=== PATIENT | female | born 1950 | race Caucasian/White ===

== ENCOUNTER 2023-11-21 17:59 | Emergency (ER) | payer MEDICARE ==
[~2023-11-21] VITALS: Ht 162.6 cm; Wt 71.2 kg
[2023-11-21 19:12] LABS: BASO # 0.1 10^3/uL (0.0-0.2); BASO % 0.5 % (0.0-1.0); EOS # 0.1 10^3/uL (0.0-0.5); EOS % 1.1 % (0.0-3.0); HEMATOCRIT 44.2 % (36.0-47.0); HEMOGLOBIN 14.6 g/dl (12.0-15.5); LYMPH # 1.8 10^3/uL (1.5-5.0); LYMPH % 18.3 % (24.0-44.0); MEAN CORPUSCULAR VOLUME 87.7 fl (80.0-96.0); MONO # 0.4 10^3/uL (0.0-0.8); NEUTROPHILS # 7.4 10^3/uL (1.5-8.5); NEUTROPHILS % 75.7 % (36.0-66.0); PLATELET COUNT, AUTOMATED 278 10^3/uL (150-450); RED BLOOD COUNT 5.04 10^6/uL (4.00-5.40); WHITE BLOOD COUNT 9.8 10^3/uL (4.0-10.0)
[2023-11-21 19:33] LABS: LIPASE 35 U/L (12-53)
[2023-11-21 19:35] LABS: ALBUMIN 4.3 G/DL (3.2-5.2); ALKALINE PHOSPHATASE 58 U/L (46-116); ALT/SGPT 18 U/L (7.0-40); AST/SGOT 11 U/L (<34); BILIRUBIN,DIRECT < 0.1 MG/DL (<0.4); BILIRUBIN,TOTAL 0.4 MG/DL (0.3-1.2); BLOOD UREA NITROGEN 18 MG/DL (9-23); CALCIUM LEVEL 9.1 MG/DL (8.3-10.6); CARBON DIOXIDE LEVEL 26 MMOL/L (20-31); CHLORIDE LEVEL 108 MMOL/L (98-107); CREATININE FOR GFR 0.67 MG/DL (0.55-1.30); GLOMERULAR FILTRATION RATE > 60.0 (>39); GLUCOSE, FASTING 113 MG/DL (74-106); INR 0.95; PARTIAL THROMBOPLASTIN TIME 30.8 SECONDS (24.8-34.2); POTASSIUM SERUM 3.8 MMOL/L (3.5-5.1); PROTHROMBIN TIME 12.4 SECONDS (12.5-14.5); SODIUM LEVEL 139 MMOL/L (136-145); TOTAL PROTEIN 7.2 G/DL (5.7-8.2)
[2023-11-21 19:38] LABS: FREE T4 0.96 NG/DL (0.89-1.76); THYROID STIMULATING HORMONE 2.858 uIU/ML (0.55-4.78)
[2023-11-21] MEDS ORDERED: hydrALAZINE 20MG/ML 1ML VIAL IV STA (19:38)
[2023-11-21] MEDS ORDERED: NS 1,000 ML IV SCH (19:40)
[2023-11-21 19:41] VITALS: TEMP 98.1
[2023-11-21] MEDS ORDERED: LABETALOL 100MG/20ML VIAL IV STA (19:53)
[2023-11-21] MEDS ORDERED: OXYMETAZOLINE 0.05% NASAL SPRAY (AFRIN) ONE (20:25)
[2023-11-21] MEDS ORDERED: amLODIPine 5 MG TAB PO ONE (21:05)
[2023-11-21 21:22] VITALS: BP 205/94
[2023-11-21] MEDS ORDERED: NORV5TAB PO (21:54)
[2023-11-21 21:59] VITALS: BP 190/95; O2SAT 98
== END 2023-11-21 22:26 | disposition home or self-care (01) ==
LOC: M ED 17:59
DX: R04.0 Epistaxis (principal); I16.0 Hypertensive urgency; I10 Essential (primary) hypertension; R00.0 Tachycardia, unspecified; Z79.83 Long term (current) use of bisphosphonates
CPT/HCPCS: 80048; 80076; 83690; 84439; 84443; 85025; 85610; 85730; 93005; 96361; 96374; 96375; 99284; J0360; J1920

== ENCOUNTER → 2023-11-29 | Outpatient (CLI) | payer MEDICARE ==
[~2023-11-29] MED LIST: NORV5TAB PO
== END ==
LOC: M ADAMS 14:59
PROVIDERS: ATTEND Family Medicine
DX: I10 Essential (primary) hypertension (principal)

== ENCOUNTER → 2023-12-10 | Outpatient (CLI) | payer MEDICARE | LOC: M RAD 13:11 | PROVIDERS: ATTEND Family Medicine | DX: I65.22 Occlusion and stenosis of left carotid artery (principal) ==

== ENCOUNTER → 2023-12-27 | Outpatient (REF) | payer MEDICARE ==
[2023-12-27 12:56] LABS: BLOOD UREA NITROGEN 18 MG/DL (9-23); CALCIUM LEVEL 9.4 MG/DL (8.3-10.6); CARBON DIOXIDE LEVEL 29 MMOL/L (20-31); CHLORIDE LEVEL 105 MMOL/L (98-107); CREATININE FOR GFR 0.74 MG/DL (0.55-1.30); GLOMERULAR FILTRATION RATE > 60.0 (>39); GLUCOSE, FASTING 95 MG/DL (74-106); POTASSIUM SERUM 4.7 MMOL/L (3.5-5.1); SODIUM LEVEL 138 MMOL/L (136-145)
== END ==
LOC: M SFHCADAM 10:42
PROVIDERS: ATTEND Physician Assistant
DX: I10 Essential (primary) hypertension (principal)

== ENCOUNTER → 2024-01-09 | Outpatient (CLI) | payer MEDICARE | LOC: M CARPUL 09:10 | PROVIDERS: ATTEND Family Medicine | DX: R01.1 Cardiac murmur, unspecified (principal) ==

== ENCOUNTER → 2024-03-24 | Outpatient (REF) | payer MEDICARE ==
[2024-03-24 15:16] LABS: ALBUMIN 3.7 G/DL (3.2-5.2); ALKALINE PHOSPHATASE 74 U/L (46-116); ALT/SGPT 33 U/L (7.0-40); AST/SGOT 11 U/L (<34); BILIRUBIN,TOTAL 0.6 MG/DL (0.3-1.2); BLOOD UREA NITROGEN 21 MG/DL (9-23); CALCIUM LEVEL 8.9 MG/DL (8.3-10.6); CARBON DIOXIDE LEVEL 28 MMOL/L (20-31); CHLORIDE LEVEL 107 MMOL/L (98-107); CHOLESTEROL LEVEL 169 MG/DL (<200); CHOLESTEROL RISK RATIO 4.53 (<5); CREATININE FOR GFR 0.75 MG/DL (0.55-1.30); GLOMERULAR FILTRATION RATE > 60.0 (>39); GLUCOSE, FASTING 123 MG/DL (74-106); HDL CHOLESTEROL 37.3 MG/DL (>40); LDL CHOLESTEROL 97.9 MG/DL (<100); NON-HDL-C 131.7 MG/DL; POTASSIUM SERUM 4.3 MMOL/L (3.5-5.1); SODIUM LEVEL 142 MMOL/L (136-145); TOTAL PROTEIN 6.8 G/DL (5.7-8.2); TRIGLYCERIDES LEVEL 169 MG/DL (<150)
== END ==
LOC: M SFHCADAM 08:53
PROVIDERS: ATTEND Family Medicine
DX: I11.9 Hypertensive heart disease without heart failure (principal)

== ENCOUNTER → 2024-05-15 | Outpatient (CLI) | payer MEDICARE | LOC: M WHC 08:41 | PROVIDERS: ATTEND Family Medicine | DX: E04.1 Nontoxic single thyroid nodule (principal) ==

== ENCOUNTER → 2025-04-01 | Outpatient (REF) | payer MEDICARE ==
[2025-04-01 14:21] LABS: HEMATOCRIT 40.7 % (36.0-47.0); MEAN CORPUSCULAR HEMOGLOBIN 29.5 pg (27.0-33.0); MEAN CORPUSCULAR HGB CONC 31.9 g/dl (32.0-36.5); MEAN CORPUSCULAR VOLUME 92.3 fl (80.0-96.0); PLATELET COUNT, AUTOMATED 283 10^3/uL (150-450); RED BLOOD COUNT 4.41 10^6/uL (4.00-5.40); WHITE BLOOD COUNT 8.4 10^3/uL (4.0-10.0)
[2025-04-01 14:22] LABS: ALBUMIN 4.2 G/DL (3.2-5.2); BILIRUBIN,TOTAL 0.5 MG/DL (0.3-1.2); CALCIUM LEVEL 9.7 MG/DL (8.3-10.6); CHOLESTEROL RISK RATIO 4.54 (<5); CREATININE FOR GFR 0.69 MG/DL (0.55-1.30); GLOMERULAR FILTRATION RATE 89.3 (>39); HDL CHOLESTEROL 39.4 MG/DL (>40); LDL CHOLESTEROL 108.2 MG/DL (<100); NON-HDL-C 139.6 MG/DL; POTASSIUM SERUM 4.7 MMOL/L (3.5-5.1); TOTAL PROTEIN 6.9 G/DL (5.7-8.2)
[2025-04-01 14:24] LABS: FREE T4 1.05 NG/DL (0.89-1.76); THYROID STIMULATING HORMONE 1.949 uIU/ML (0.55-4.78)
[2025-04-01 14:33] LABS: HEMOGLOBIN A1c 5.5 % (4.0-6.0)
== END ==
LOC: M SFHCADAM 07:34
PROVIDERS: ATTEND Family Medicine
DX: I11.9 Hypertensive heart disease without heart failure (principal); E78.5 Hyperlipidemia, unspecified; E04.2 Nontoxic multinodular goiter; Z13.1 Encounter for screening for diabetes mellitus